=== PATIENT | male | born 1955 | race Caucasian/White ===

== ENCOUNTER 2023-08-20 00:27 | Emergency (ER) | payer MEDICARE, OTHER, SELFPAY ==
[2023-08-20 00:32] VITALS: BP 158/93
--- NOTE | 2023-08-20 00:42 | ED.GENMED ---
History of Present Illness
<NYLA Ellington - Last Filed: 08/20/23 05:56>
General
Chief Complaint: Male Genito-Urinary Symptoms
Source: patient
Exam Limitations: none
Time Seen by Provider: 08/20/23 00:41
Nursing documentation reviewed up to this point in time: agreed with
Travel History
Have you had any contact with someone who has COVID-19?: No
Do you have any symptoms of coronavirus? Fever > 100 degrees, chills, cough, shortness of breath, sore throat, loss of taste or smell, muscle aches, or headache?: No
History of Present Illness
History of Present Illness:
This is a 67 year old male with a history of Brando's thyroiditis and HLD presenting to the ED c/o urinary retention x 7 hours. Pt states he had a prostate biopsy at 10:30 am for an elevated PSA level. Post procedure, he was urinating frequently,
'about 20x,' with bloody urine that resolved as he drank more fluids. At around 3:30 pm, he noticed he was unable to urinate and has since not urinated. He has an urge to urinate and he complains of constant suprapubic and lower abdominal pain. He
denies any fever, chills, n/v/d/c, CP, SOB, dizziness, lightheadedness, upper abdominal pain, dysuria, back pain, or leg pain/swelling.
Pt denies any family hx of prostate or bladder cancer. His father has a history of CAD. He denies tobacco or drug use. Drinks 1-2 alcoholic drinks weekly with his .
Past History
<NYLA Ellington - Last Filed: 08/20/23 05:56>
Past History
ED Past Medical History: Hypercholesterolemia and Hypothyroidism (Brando's)
ED Past Surgical History: Urological (prostate biopsy)
Patient has exhibited threatening behavior?: No
Social History
Tobacco: Non-smoker
Alcohol: Occasional
Drug: None
Personal:
Living: with family
Family History
Family History: CAD; Negative Cancer
Review of Systems
<Matthewleti NYLA Penny - Last Filed: 08/20/23 05:56>
Review of Systems
Allergies reviewed?: Yes
Constitutional: Reports no symptoms; Denies fever or chills
EENT: Reports no symptoms
Respiratory: Reports no symptoms; Denies trouble breathing
Cardiac: Reports no symptoms; Denies chest pain
ABD/GI: Reports abdominal pain; Denies nausea, vomiting, diarrhea or constipated
: Reports difficulty voiding, urgency and bleeding; Denies dysuria
Musculoskeletal: Reports no symptoms; Denies joint swelling or edema
Skin: Reports no symptoms; Denies itching
Neurological: Reports no symptoms; Denies dizzy or numbness
Endocrine: Reports no symptoms
Hematologic/Lymphatic: Reports no symptoms
Psychiatric: Reports no symptoms
Phy Exam
<ST ChandanaHI - Last Filed: 08/20/23 05:56>
General Physical Exam
General Presentation: well appearing and mild distress
General age: appears stated age
General Skin: warm and dry
General Habitus: normal
General Mental: alert
General Hydration: appears well hydrated
Cardiovascular Exam
Cardiovascular Exam: regular rate/rhythm, no edema, no gallop, no murmur and normal peripheral pulses
Heart Sounds: normal
Pulmonary Exam
Pulmonary Exam: lungs clear, no respiratory distress, no rales, no crackles, no rhonchi, no wheezing and no cough
Oxygen Status: room air
Cough: no cough
Gastrointestinal Exam
Gastrointestinal Exam: normal bowel sounds, guarding and tender (suprapubic, generalized lower abdomen)
Palpation: left lower quadrant: Moderate tenderness and right lower quadrant: Moderate tenderness
Auscultation of Abdomen: normal
Genitourinary Exam Male
Exam Male: circumcised, no discharge, normal external genitalia, no evidence of trauma and no lesions
Skin Exam
Skin Exam: normal color and warm/dry
Psychiatric Exam
Psychiatric Exam: normal mood/affect
Course
<NYLA Ellington - Last Filed: 08/20/23 05:56>
Orders/Labs/Results
Orders:
Orders
08/20/23 00:46
Bladder Scan- Treatment ONCE
Bladder Scan As Directed
Follow Bladder Retention/Intermittent Cath Algorithm?: No
08/20/23 01:01
Lidocaine 2% [Lidocaine Uro-Jet 2%] 1 syringe .ROUTE .[facility] ONE
08/20/23 01:23
Urinalysis Reflex To Culture Urgent
Date Specimen was Collected: 08/20/23
Time Specimen was Collected: 00:47
Urine Microscopic Reflex Cult Urgent
08/20/23 01:57
Cade Catheter [Catheter- Indwelling] As Directed
Reason for insertion: Acute Retention
Size: 14
Discontinue Date/Time: 08/23/23 0600
Abnormal Lab Results
08/20/23
01:23
Ur Occult Blood Reflex Trace A
(Negative)
Urine RBC 3-6 A /HPF
(0-2)
Urine Bacteria (Reflex) Few A
(Negative)
Vital Signs
Initial and Last Documented VS:
Initial Vital Signs
Temp Pulse Resp BP Pulse Ox
98.1 F 96 18 158/93 100
08/20/23 00:32 08/20/23 00:32 08/20/23 00:32 08/20/23 00:32 08/20/23 00:32
Last Documented Vital Signs
Temp Pulse Resp BP Pulse Ox
98.1 F 69 14 123/73 95
08/20/23 00:32 08/20/23 02:40 08/20/23 02:40 08/20/23 02:42 08/20/23 02:42
<Angel Edwards DO - Last Filed: 08/20/23 02:38>
Orders/Labs/Results
Orders:
Orders
08/20/23 00:46
Bladder Scan- Treatment ONCE
Bladder Scan As Directed
Follow Bladder Retention/Intermittent Cath Algorithm?: No
08/20/23 01:01
Lidocaine 2% [Lidocaine Uro-Jet 2%] 1 syringe .ROUTE .Lutonix-MED ONE
08/20/23 01:23
Urinalysis Reflex To Culture Urgent
Date Specimen was Collected: 08/20/23
Time Specimen was Collected: 00:47
Urine Microscopic Reflex Cult Urgent
08/20/23 01:57
Cade Catheter [Catheter- Indwelling] As Directed
Reason for insertion: Acute Retention
Size: 14
Discontinue Date/Time: 08/23/23 0600
Abnormal Lab Results
08/20/23
01:23
Ur Occult Blood Reflex Trace A
(Negative)
Urine RBC 3-6 A /HPF
(0-2)
Urine Bacteria (Reflex) Few A
(Negative)
Vital Signs
Initial and Last Documented VS:
Initial Vital Signs
Temp Pulse Resp BP Pulse Ox
98.1 F 96 18 158/93 100
08/20/23 00:32 08/20/23 00:32 08/20/23 00:32 08/20/23 00:32 08/20/23 00:32
Last Documented Vital Signs
Temp Pulse Resp BP Pulse Ox
98.1 F 69 14 123/73 95
08/20/23 00:32 08/20/23 02:40 08/20/23 02:40 08/20/23 02:42 08/20/23 02:42
<NYLA Ellington - Last Filed: 08/20/23 05:56>
*Critical Care Note
Total Time (30-74mins, 75-104mins- exclusive of procedures): Not Applicable
<NYLA Ellington - Last Filed: 08/20/23 05:56>
Update Note
Update Note:
800 mL drained in cade - pt's pain has resolved and he is resting comfortably
ED Attending Note
<NYLA Ellington - Last Filed: 08/20/23 05:56>
-
Portions of this chart may have been created with voice recognition software.� Occasional wrong word or��sound alike� substitutions may have occurred due to the inherent limitations of voice recognition software.
<Angel Edwards DO - Last Filed: 08/20/23 02:38>
ED Attending Note
Patient seen and examined by attending physician: Yes
I performed the substantive portion of visit, reviewed & personally made and approve the management plan that is documented in note by myself or SWETHA.: Yes
ED Attending Note:
Pleasant 67-year-old male who presents with urinary retention. He had a prostate biopsy earlier today for which they did 24 separate samples. He was able to urinate after lunch. Around 5 PM today he started to trickle urine. He states that soon
after he was unable to urinate. He called [facility] who advised him to come to the emergency department for Cade catheter. Patient was seen in conjunction with the PA student. I have reviewed and agree with the history and treatment plan
presented. On my independent physical exam, patient is awake, alert, and oriented x3. No respiratory distress. Moves all [address] extremities. Cade catheter in place. 800 cc of urine in the bag. Appears clear. Cade will remain in place. Patient
will follow-up with [facility] urology.
Discharge Plan
Departure
Patient Disposition: Home (Routine Discharge)
Date of Disposition: 08/20/23
Time of Disposition: 02:04
Patient with high blood pressure during this ER visit?: Yes
Discharge Problem:
Acute urinary retention
Instructions: How to Care for Your Cade Catheter, Male, Urinary Retention (DC), BLOOD PRESSURE
Activity Restrictions/Additional Instructions:
It was a pleasure meeting you and taking part in your care. We hope for your continued healing and wellness.
Please read discharge instructions in their entirety. However, they are for general education and may not describe your exact diagnosis at discharge. Information on your ER visit and medical conditions were discussed with you along with appropriate
follow up information...
If indicated, please take your medications as instructed and indicated on discharge paperwork.
Please schedule a follow up appointment as directed. Call to schedule an appointment
Please return to the emergency department with ANY change in, persisting, or worsening of symptoms. If any of your symptoms do not improve, or persist, or become more severe within 6-12 hours, please return to the emergency department for further
care.
Please return to the emergency department if you develop a headache, neck pain/stiffness, fever greater than 100.4F, chest pain, shortness of breath, persistent nausea, vomiting, slurred speech, difficulty walking, numbness/tingling, weakness, signs
of infection or any other symptoms that are worrisome to you.
If you have any questions or concerns please do not hesitate to call the Hospital at or E-mail me directly at [email or web address]
Interventions
Interventions:
*Risk Screen - Suicide Last Done: 08/20/23 00:32
*General Assessment Last Done: 08/20/23 00:32
*Neglect/Abuse Screening Last Done: 08/20/23 00:32
ED- Fall Risk Assessment Last Done: 08/20/23 00:32
*ED COVID-19 Vaccine History Last Done: 08/20/23 00:32
*Nursing Disposition Last Done: 08/20/23 02:50
ED-Male Genitourinary Assessment Last Done: 08/20/23 01:20
Discharge Date and Time
Discharge Date/Time: 08/20/23 03:50
[2023-08-20 00:44] VITALS: BP 147/77
[2023-08-20 01:32] LABS: Urine Albumin Negative (Neg - Trace); Urine Bilirubin Negative (Negative); Urine Character Clear (Clear); Urine Color Yellow; Urine Glucose Negative (Negative); Urine Ketone Negative (Negative); Urine Leukocyte Negative (Negative); Urine Nitrite Negative (Negative); Urine Occult Blood Trace (Negative); Urine Urobilinogen Negative (Neg - 1+)
[2023-08-20 01:41] LABS: Urine Bacteria Few (Negative); Urine White Cell 0-2 /HPF (0-5)
[2023-08-20 02:42] VITALS: BP 123/73
== END 2023-08-20 03:50 | disposition home or self-care (01) ==
LOC: EMR 00:27
PROVIDERS: EMERGENCY PHYSICIAN Student in an Organized Health Care Education/Training Program; FAMILY PHYSICIAN Family Medicine
DX: R33.9 Retention of urine, unspecified (principal); R10.30 Lower abdominal pain, unspecified; R03.0 Elevated blood-pressure reading, without diagnosis of hypertension
CPT/HCPCS: 99283; 51798; 51702; 81003; 81015

== ENCOUNTER → 2023-10-23 12:36 | Outpatient (REF) | payer MEDICARE, OTHER, SELFPAY | LOC: RAD 12:36 | PROVIDERS: ATTENDING PHYSICIAN Physician Assistant Medical | DX: E78.5 Hyperlipidemia, unspecified (principal); Z82.49 Family history of ischemic heart disease and other diseases of the circulatory system; R10.84 Generalized abdominal pain | CPT/HCPCS: 74176; 75571 ==

== ENCOUNTER → 2023-12-15 10:49 | Outpatient (REF) | payer MEDICARE, OTHER, SELFPAY | LOC: PAVMRI 10:49 | PROVIDERS: ATTENDING PHYSICIAN Otolaryngology; FAMILY PHYSICIAN Family Medicine | DX: M54.2 Cervicalgia (principal); K11.23 Chronic sialoadenitis | CPT/HCPCS: 70543; A9575 ==

== ENCOUNTER → 2025-03-10 08:06 | Outpatient (REF) | payer MEDICARE, OTHER, SELFPAY | LOC: RAD 08:06 | PROVIDERS: ATTENDING PHYSICIAN Family Medicine | DX: R07.9 Chest pain, unspecified (principal); E03.8 Other specified hypothyroidism; I83.891 Varicose veins of right lower extremity with other complications | CPT/HCPCS: 76536 ==

== ENCOUNTER → 2025-03-17 07:27 | Outpatient (REF) | payer MEDICARE, OTHER, SELFPAY | LOC: RAD 07:27 | PROVIDERS: ATTENDING PHYSICIAN Family Medicine | DX: M54.2 Cervicalgia (principal); R59.0 Localized enlarged lymph nodes | CPT/HCPCS: 70491; Q9967 ==

== ENCOUNTER → 2025-03-24 08:53 | Outpatient (REF) | payer MEDICARE, OTHER, SELFPAY | LOC: HWEVLT 08:53 | PROVIDERS: ATTENDING PHYSICIAN Radiology Vascular & Interventional Radiology | DX: I83.891 Varicose veins of right lower extremity with other complications (principal) | CPT/HCPCS: 93971 ==

== ENCOUNTER → 2025-04-04 07:22 | Outpatient (REF) | payer MEDICARE, OTHER, SELFPAY | LOC: RCS 07:22 | PROVIDERS: ATTENDING PHYSICIAN Family Medicine | DX: R07.9 Chest pain, unspecified (principal) | CPT/HCPCS: 93017 ==